=== PATIENT | female | born 1990 | race Two or more races ===

== ENCOUNTER 2021-05-27 10:14 | Emergency (ER) | payer OTHER ==
[~2021-05-27] VITALS: Ht 149.9 cm; Wt 58.1 kg
[2021-05-27] MEDS ORDERED: PRENATABS FA T1 EACH (10:35)
== END 2021-05-27 19:47 | disposition home or self-care (01) ==
LOC: ER 10:14
DX: O20.8 Other hemorrhage in early pregnancy (principal); Z3A.01 Less than 8 weeks gestation of pregnancy